=== PATIENT | female | born 1950 | race African-American/Black ===

== ENCOUNTER 2018-12-06 15:13 | Emergency (ER) | payer MEDICAID ==
[~2018-12-06] VITALS: Ht 160 cm; Wt 91.0 kg
[2018-12-06 20:00] VITALS: BP 145/70
== END 2018-12-06 20:15 | disposition home or self-care (01) ==
LOC: ER 15:13
DX: R60.0 Localized edema (principal); I10 Essential (primary) hypertension; F31.9 Bipolar disorder, unspecified; H54.7 Unspecified visual loss; Z85.3 Personal history of malignant neoplasm of breast; Z92.3 Personal history of irradiation; Z90.710 Acquired absence of both cervix and uterus
CPT/HCPCS: 93970; 99284